=== PATIENT | female | born 1995 | race Caucasian/White ===

== ENCOUNTER → 2022-11-21 | Day surgery (SDC) | payer OTHER ==
[~2022-11-21] MED LIST: DEXAMETHASONE SOD PHOS INJ 4 MG/ML SDV ONE; FENTANYL CITRATE/PF 100MCG/2 ML INJ ONE; KETOROLAC TROMETHAMINE 30 MG/ML VIAL ONE; LEVOCETIRIZINE D5 MG PO; LEXAPRO10 MG PO; LIDOCAINE HCL 2% LOCAL INJ 5 ML SDV VIAL INJ ONE; MIDAZOLAM HCL 2 MG/2 ML VIAL ONE; MULTI-VITAMIN1 EACH PO; OFLOXACIN 0.3% (OTIC SOL) 5 ML BTL ONE; ONDANSETRON HCL INJ 2MG/ML 2ML 2 MG/ML VIAL ONE; POVIDONE IODINE 0.05% 0.05 % ML PO ONE; PROBIOTIC & AC1 EACH PO; PROPOFOL IV EMULSION 10 MG/ML 20 ML VIAL ONE; SEVOFLURANE INHAL SOLN 250 ML PEN BTL ONE; VIENVA-28 TABL1 EACH; [UNRECOGNIZED DRUG - OTHER] PO
[2022-11-21 09:30] VITALS: BP 115/78
== END | disposition home or self-care (01) ==
LOC: OR 07:04
PROVIDERS: ATTEND Otolaryngology Otolaryngology/Facial Plastic Surgery
DX: H66.93 Otitis media, unspecified, bilateral (principal); H74.02 Tympanosclerosis, left ear; H90.2 Conductive hearing loss, unspecified; H93.8X1 Other specified disorders of right ear; F41.9 Anxiety disorder, unspecified; T78.40XA Allergy, unspecified, initial encounter; X58.XXXA Exposure to other specified factors, initial encounter; Z79.899 Other long term (current) drug therapy
CPT/HCPCS: 69436; 81025; J1100; J1885; J2001; J2405; J2704; J2250; J3010